=== PATIENT | male | born 1970 | race Caucasian/White ===

== ENCOUNTER → 2017-11-13 | Outpatient (CLI) | payer OTHER ==
--- NOTE | 2017-11-14 06:10 | PAP/PSG TECHNICIAN REPORT ---
[facility] Instructional Assistant Polysomnogram Report Study name: None Report date: 11/14/2017 Study date: 11/13/2017 Referring Physician: Dr. Essie Leonardo M.D. Name: FRANSISCO HEATH Interpreting Physician: Essie Leonardo M.D. Date of : 1970 Instructional Assistant: Debbi Smith [facility]. Sex: Male Age: 46 StudyType: PSG Weight: 250 lbs Height: 46 years, Height 5' 11" BMI: 34.86 Medications: Lorazepam 0.5 mg, Multi Vitamin, Paroxetine 10 mg Patient History 46 yr. old male here for a diagnostic sleep study. Patient had a HST that was negative for JOHNATHON. Patient has a history of HLD and panic disorder. Patient complains of snoring, witnessed apneas and fatigue. Patients ESS 02/27. Parameters Monitored NPSG: E1-M2, E2-M1, Fp1-M2, Fp2-M1, F3-M2, F4-M2, F4-M1, C3-M2, C4-M2, C4-M1, O1-M2, O2-M2, O2-M1, T3-M2, T4-M1, P3-M2, P4-M1, CHIN1, CHIN2, HR, EKG, Legs, PFLOW, SNOR, FLOW, CFLOW, Tidal Volume, THOR, ABDO, SpO2, PLTH, CPRESS, ETCO2 Wave, ETCO2, pH Sleep Architecture Sleep Stages Time at Lights Off 9:12:57 PM STAGES Time (min.) TST (%) Time at Lights On 5:36:57 AM Wake 68.0 -- Total Recording Time (TRT) 504.50 min. N1 34.0 8 Total Sleep Period (TSP) 484.0 min. N2 271.0 62 Total Sleep Time (TST) 436.0min. N3 63.5 15 Awake Time 68.0 min. REM 67.5 15 Wake after Sleep Onset 48.0 min. Sleep Efficiency (SE) 87 % Sleep Onset Latency (ROBERT) 20.0 min. Number of Stage 1 Shifts None Awakenings 15 Stage Changes 78 Number of REM periods 5 REM 67.5 15 REM Latency 147.5 min. NREM 368.5 85 Body Position Analysis Supine Right Left Side Prone Vertical Total Sleep Time (min.) 116.9 154.5 166.4 320.87 0.0 8.6 Total Sleep Time (%) 26% 35% 38% 74 0% N/A% Total Sleep Time REM (min.) 30.5 17.5 19.5 None 0.0 0.0 Total Sleep Time NREM (min.) 84.6 137.0 146.9 None 0.0 0.0 Intermittent Wake (min.) 1.7 36.3 21.4 None 0.0 8.6 Total Sleep Period (%) 24% None None None None None Arousals Myoclonus (PLM) * Events Count Index Events Count Index Spontaneous 16 2 Events Awake (PLMW) 46 40.6 Respiratory 1 0.3 Events Asleep w/ Arousal (PLMA) 14 1.9 PLM 14 2 Events Asleep w/o Arousal (PLMS) 51 7.0 Snoring 14 2 Total Asleep 65 8.9 Total 45 6 Total 111 13 Respiratory Analysis * CA OA MA CH H RERA Total Count 6 0 0 0 40 0 46 Index 0.8 0.0 0.0 0 5.5 0 6.3 Mean Duration 13.5 0.0 0.0 0.00 23.7 0.0 22.4 Longest Duration 16.7 0.0 0.0 0.00 0.0 0.0 43.4 Respiratory Event Summary Total Supine ~Supine Right Left Prone REM NREM Apneas Count 6 0 6 5 1 N/A 1 5 Index 0.8 0 1 1.9 0.4 N/A 1 1 Hypopneas (4% Desat) Count 40 26 14 10 4 N/A 7 33 Index 5.5 13.5 3 3.9 1.4 N/A 6.2 5.4 Apneas & All Hypopneas Count 46 26 20 15 5 N/A 8 38 Index 6.3 14 4 6 2 N/A 7.1 6.2 Respiratory Events (Skein Yarn Dyer Helper+All Hyp+RERA) Count 46 26 20 15 5 N/A 8 38 Index 6.3 14 4 5.8 1.8 N/A 7.1 6.2 Respiratory Related Arousal Count 1 26 2 1 1 N/A 0 2 Index 0.3 0 0 0 0 N/A 0 0 Snoring Analysis Supine Right Left Prone REM NREM Total Snore duration 1.7 min Snores count 20 17 17 N/A 11 43 54 Snore mean duration 1.9 Sec Snores index 10 7 6 N/A 9.8 7.0 7.4 TST with snoring (%) 0.4% SpO2 Analysis Total REM NREM Awake <50% 0.0 min. 0.0 min. 0.0 min. 0.0 min. 51 - 60% 0.0 min. 0.0 min. 0.0 min. 0.0 min. 61 - 70% 0.0 min. 0.0 min. 0.0 min. 0.0 min. 71 - 80% 0.0 min. 0.0 min. 0.0 min. 0.0 min. 81 - 90% 12.9 min. 2.2 min. 9.6 min. 1.2 min. 91 - 100% 485.9 min. 65.3 min. 358.5 min. 62.0 min. Average 93 93 93 93 Minimum SpO2 82 89 85 82 Desaturation Event Index 6.4 8.0 6.4 7.1 # Desat. Events below 89% 4 N/A 3 1 Time(%) with Saturation below 89% 0.1 0.0 0.1 0.1 Time(min.) with Saturation below 89% 0.7 0.0 0.5 0.3 Heart Rate Analysis End Tidal CO2 Analysis Min (bpm) Max (bpm) Average (bpm) TSP (mins) % of TSP Awake 54 205 68 Above 55 mmHg 0.0 0.0 NREM 50 79 56 50-55 mmHg 0.0 0.0 REM 51 65 56 45-50 mmHg 12.9 3.0 Overall 50 79 56 40-45 mmHg 196.7 45.1 35-40 mmHg 101.3 23.2 30-35 mmHg 80.6 18.5 Average ETCO2 0.2 Supplemental O2 Values Minimum O2 level: None Value Start Time End Time Instructional Assistant Comments Mr. Heath slept in the right, left, and supine positions. No cardiac arrhythmia or PLMs noted. No bruxism noted. Snoring was noted and scored as a 2 on a scale of 0 through 5. (0=no snoring, 5=snoring loud enough to be heard through a closed door or down the quintero way) Mr. Heath awoke to use the restroom once during the night. Mr. McNelis stated, that was not a normal night. The final report will be interpreted and signed by a sleep physician. The completed physician report will then be placed in the patient medical record. Therapy (cm H2O) 0 TIB (min.) 504.0 TST (min.) 436.0 Sleep Onset (min.) 20.0 REM Onset From Sleep (min.) 147.5 Sleep Efficiency % 87 Wakefulness (%) 13 Wakefulness (min.) 68.0 NREM 1 (%) 8 NREM 1 (min.) 34.0 NREM 2 (%) 62 NREM 2 (min.) 271.0 NREM 3 (%) 15 NREM 3 (min.) 63.5 REM (%) 15 REM (min.) 67.5 # Arousals 45 Arousal Index 6 # Snore 54 Snore Index 7.4 AHI 6.3 AHI Supine 14 AHI Non-Supine 4 NREM AHI 6.2 REM AHI 7.1 RDI 6.3 # Obstructive Apnea 0 # Central Apnea 6 # Mixed Apnea 0 # Hypopneas 40 RERAs 0 Total Respiratory Events 49 Time Below SpO2 89% (min.) 0.5 Mean NREM SpO2 (%) 93 Mean REM SpO2 (%) 93 Mean Sleep SpO2 (%) 93 Min NREM SpO2 (%) 85 Min REM SpO2 (%) 89 Position Supine (min.) 116.9 Position Non-supine (min.) 320.9 LM Index Sleep 8.9 LM Index NREM 8.6 LM Index REM 10.7 Mean Heart Rate (bpm) 56 Min Heart Rate (bpm) 50
--- NOTE | 2017-11-20 15:13 | Sleep Study ---
Sleep Study Report Date of Service: 11/20/17 Sleep Study Report [facility] Diagnostic Polysomnogram Interp Report Study name: None Report date: 11/20/2017 Study date: 11/13/2017 Referring Physician: Dr. Essie Leonardo M.D. Name: DIMITRIALINE COTABETH Akers Interpreting Physician: Essie Leonardo M.D. Date of : 1970 Answering Service Agent: Debbi Smith [facility]. Sex: Male Age: 46 StudyType: PSG Weight: 250 lbs Height: 46 years, Height 5' 11" BMI: 34.86 Medications: Lorazepam 0.5 mg, Multi Vitamin, Paroxetine 10 mg DIAGNOSTIC POLYSOMNOGRAPHY REPORT This patient was referred by Dr. Essie Leonardo M.D.. FRANSISCO STUART, tested at 9:02:27 PM on 11/13/2017, is a 46 year old male, date of 1970 who is 5' 11" and 250 lbs, with a BMI of 34.86, which is elevated. This patient has an Gibbon Sleepiness Score of 8, which is normal. Study scored by: Essie Leonardo M.D. IMPRESSION: 1-Mild obstructive sleep apnea syndrome. These respiratory events were associated with oxygen desaturations ( brice of 85 % ). 2-Abnormal sleep architecture likely due to respiratory events and first night effect. RECOMMENDATIONS: 1-CPAP titration study vs Auto-PAP. 2-Avoidance of alcohol and sedatives. Past medical history: 46 yr. old male here for a diagnostic sleep study. Patient had a HST that was negative for JOHNATHON. Patient has a history of HLD and panic disorder. Patient complains of snoring, witnessed apneas and fatigue. Patients ESS 8/24. Medications: Lorazepam 0.5 mg, Multi Vitamin, Paroxetine 10 mg Sleep Study Summary Procedure: The study was attended continuously by a biomedical engineering technologist. The monitored parameters included: left (E1-M2) and right (E2-M1) EOG, frontal (F3- M2 & F4-M1), central (C3-M2 & C4-M1) and occipital (O1-M2 & O2-M1) EEG, mental and submental EMG, left and right anterior tibialis EMG, left and right extensor digitorum EMG, single ECG waveform, snoring, continuous airflow with thermistor and nasal pressure transducer, chest and abdominal effort, oxygen saturation, EtCO2, and body position via video monitoring. Hypopnea definition: The nasal pressure signal excursions (or those of the alternative hypopnea sensor) drop by 30 % of baseline. The duration of this drop occurs for a period lasting at least 10 seconds. There is a 4 % desaturation from pre-event baseline or the event is associated with an arousal. At least 90% of the event's duration must meet the amplitude reduction criteria for hypopnea. Sleep Data: This patient displayed normal latency to sleep onset of 20.0 min., with disrupted sleep architecture with sleep stage percentages of 7% N1, 56% N2, 13% N3, and 14% REM, with normal sleep efficiency of 87% and with Total Sleep Time of 436.0 minutes. Respiratory Data: 46 respiratory events were observed. The apnea-hypopnea index was 6.3 which is mild. The amounts of apneas/hypopneas are evenly distributed throughout the study, with a non-REM RDI of 6.2 and a REM RDI of 7.1. Respiratory events were more frequent in the supine position. The longest respiratory event duration was 43.4 sec. Minimum NREM oxygen saturation was 85%; minimum REM oxygen saturation was 89%. Time spent below SaO2 of 90% was 0.0 min. The time spent with SaO2 of 80-89% was 0 min. Snoring was noted to be present. Limb Movement: 65 limb movements were observed for an index of 8.9. Arousal: 45 arousals were observed, with a total index of 6. There were 16 spontaneous arousals, 1 respiratory arousals (respiratory arousal index of 0.3) , and 14 limb movement arousals (limb movement arousal index of 2). Cardiac: The average heart rate during sleep was 58 beats per minute, with a range of 50 to 79. During wake, the heart rate ranged from 54 to 205 beats per minute. There were no arrhythmias noted. Saad-Drew breathing was absent. EEG: There were no epileptic form features reported. Behavioral Observation: The patient reported that their sleep for this study was shorter in duration and of poorer quality than usual. The patient did not display unusual behaviors. Thank you for the courtesy of this referral. Dr Essie Leonardo Board Certified in Internal/ Sleep Medicine
== END | disposition home or self-care (01) ==
LOC: C.NEUR 21:00
PROVIDERS: ATTEND Internal Medicine
DX: G47.33 Obstructive sleep apnea (adult) (pediatric) (principal)